=== PATIENT | female | born 1960 | race Caucasian/White ===

== ENCOUNTER → 2021-04-14 | Outpatient (CLI) | payer OTHER, SELFPAY | PROVIDERS: Referring Provider Internal Medicine; Visit Provider Internal Medicine | DX: Z23 Encounter for immunization (principal) | CPT/HCPCS: 90471; 90686 ==

== ENCOUNTER 2021-05-09 11:59 | Emergency (ER) | payer OTHER, SELFPAY ==
[2021-05-09] VITALS (9 sets, daily range): BP systolic 96–117; BP diastolic 55–64; PULSE 54–90; RESP 16–26; TEMP 36.2; O2SAT 93–99
--- NOTE | 2021-05-09 12:29 | DI.RAD.S_ITS ---
PROCEDURE: XR CHEST 2V INDICATIONS: Mid back pain TECHNIQUE: 2 views of the chest were acquired. COMPARISON: [facility], CT, CT THORACIC SPINE WO CON, 05/09/2021, 12:40. FINDINGS: Surgical changes and devices: Right breast clips. Lungs and pleura: Lungs are clear. No pleural effusions or pneumothorax. Mediastinum: Mediastinal contours are normal. Heart size is normal. Bones and chest wall: No suspicious bony abnormalities. Soft tissues appear unremarkable. IMPRESSION: No acute cardiopulmonary abnormality. Dictated by: Anthony Batista M.D. on 05/09/2021 at 13:40 Approved by: Anthony Batista M.D. on 05/09/2021 at 13:42
--- NOTE | 2021-05-09 12:39 | DI.CT.S_ITS ---
PROCEDURE: CT THORACIC SPINE WO CON INDICATIONS: Midline thoracic tenderness TECHNIQUE: Noncontrast 3 mm thick sections acquired through the region of interest in the thoracic spine. Sagittal and coronal reformats were then constructed. For radiation dose reduction, the following was used: automated exposure control. COMPARISON: None. FINDINGS: Image quality: Excellent. Bones: There is normal overall bony alignment. No acute vertebral body compression fractures. Minimal anterior vertebral body height loss of multiple contiguous thoracic vertebral bodies results in increase in the thoracic kyphosis. No suspicious sclerotic or lytic bony lesions. Central spinal canal is of normal overall caliber. Soft tissues: No paravertebral masses or hematomas. Visualized posteromedial lungs appear clear. IMPRESSION: No evidence acute bony abnormality of the thoracic spine. If clinical suspicion and/or symptoms persist, further assessment with repeat plain films, or advanced imaging (e.g., CT, MRI, or bone scan) may be helpful for further assessment. Dictated by: Jimi Murillo M.D. on 05/09/2021 at 13:20 Approved by: Jimi Murillo M.D. on 05/09/2021 at 13:25
--- NOTE | 2021-05-09 12:47 | ED.BACK ---
HPI - Back Pain/Injury <Babatunde Martell PA-C - Last Filed: 05/09/21 15:36> General Chief Complaint: Back Pain/Injury Stated Complaint: Back Pain/Throwing Up/Coloring is Off, Hx Diabetes Time Seen by Provider: 05/09/21 12:17 Source: patient Limitations: no limitations History of Present Illness HPI Narrative: 60-year-old female past medical history diabetes, hypertension presents to the ED with 2 days of all over back pain. Patient says she has been feeling generally unwell for the last 4 weeks, however nausea, vomiting and back pain started since yesterday. Patient endorses a lot of recent stress, on account of taking care of her mother. Patient states that she felt lightheaded this morning, sat down in the break room on the floor, was sent to the ED for further evaluation. 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 Patient denies fever, chills, shortness of breath, cough, abdominal pain, dysuria, diarrhea, constipation. Denies urinary hesitancy, IV drug use, perianal numbness. Patient endorses substernal chest pain that has been ongoing for 4 weeks. Patient is vaccinated for COVID-19. Related Data Allergies Allergy/AdvReac Type Severity Reaction Status Date / Time Sulfa (Sulfonamide Allergy Severe Vomiting Verified 05/09/21 12:26 Antibiotics) naproxen [From Aleve] AdvReac Unknown Verified 05/09/21 12:26 Review of Systems <Babatunde Martell PA-C - Last Filed: 05/09/21 15:36> Constitutional Constitutional: Denies chills, Denies fatigue, Denies fever(s), Denies frequent falls, Denies lethargy and Denies weakness Eyes Eyes: Denies change in vision, Denies eye discharge, Denies irritation and Denies loss of vision ENT Ears, Nose, Mouth, and Throat: Denies change in voice, Denies dizziness, Denies neck pain, Denies sore throat and Denies throat swelling Cardiovascular Cardiovascular: Denies chest pain, Denies irregular heart rhythm, Denies lightheadedness, Denies palpitations, Denies dyspnea, Denies dyspnea on exertion and Denies orthopnea Respiratory Respiratory: Denies cough, Denies dyspnea, Denies dyspnea on exertion and Denies wheezing Gastrointestinal Gastrointestinal: Denies abdominal pain, Denies change in bowel habits, Denies diarrhea, Reports nausea and Reports vomiting Musculoskeletal Musculoskeletal: Reports back pain, Denies neck pain and Denies numbness Integumentary/Breasts Skin/Breast: Denies pruritus, Denies erythema, Denies rash and Denies wounds Neurologic Neurologic: Denies behavioral changes, Denies confusion, Denies dizziness, Denies frequent falls, Denies loss of vision, Denies numbness and Denies weakness Psychiatric Psychiatric: Denies anxiety, Denies behavioral changes, Denies confusion, Denies depression, Denies homicidal ideation and Denies suicidal ideation Endocrine Endocrine: Denies fatigue, Denies flushing and Denies palpitations Hematologic/Lymphatic Hematologic/Lymphatic: Denies easy bruising Allergic/Immunologic Allergic/Immunologic: Denies urticaria, Denies throat swelling and Denies wheezing Patient History <Babatunde Martell PA-C - Last Filed: 05/09/21 15:36> Social History Smoking Status: Never smoker Smoking Status: Never smoker alcohol intake frequency: 0-2 drinks per day Substance Use Type: does not use Exam <Babatunde Martell PA-C - Last Filed: 05/09/21 15:36> Initial Vital Signs Initial Vital Signs: Vital Signs Temperature 97.1 F L 05/09/21 12:14 Pulse Rate 90 05/09/21 12:14 Respiratory Rate 16 05/09/21 12:14 Blood Pressure 96/64 05/09/21 12:14 Pulse Oximetry 99 05/09/21 12:14 Const General: cooperative HENMT Head: normocephalic and atraumatic Ears: external ears normal and TM's normal bilaterally Nose: external nose normal and No nasal discharge Face and sinus: sinuses nontender, face symmetric, no sinus tenderness and No dry mucous membranes Mouth: oral mucosae normal and moist mucous membranes Teeth and gingiva: dentition normal Throat: tonsils normal and uvula midline Eyes General: appearance normal, both eyes and all related structures Eyelids: eyelids normal Conjunctivae: conjunctivae normal Sclera: sclerae normal Pupils: PERRL EOM: EOM intact bilaterally Neck Neck: normal visual inspection, trachea midline, No lymphadenopathy, No midline deformity and No JVD Lymphatic: No lymphedema Chest Chest: normal inspection of the chest Resp Effort & Inspection: normal respiratory effort, able to speak in complete sentences, no respiratory distress and no use of accessory muscles Auscultation: clear to auscultation bilaterally, no rales, no rhonchi and no wheezes Cardio Rate: regular rate Rhythm: regular rhythm Heart Sounds: no click, no gallops, no murmurs and no rubs Pulses: normal peripheral pulses GI Inspection: non-distended Palpation: soft, no hepatosplenomegaly, No guarding, No pulsatile mass and No tender Auscultation: normal bowel sounds Back/Spine/Pelvis Back: No CVA tenderness Cervical Spine: cervical ROM normal and No pain with cervical ROM Thoracic/Lumbar Spine: thoracic and lumbar spine normal to inspection Other: Midline tenderness to the thoracic region. Full range of motion. Strength and sensation intact. Strength and sensation intact. Skin General: no rashes or lesions noted, No jaundice and No petechiae Neuro General: patient alert, patient oriented x3, gait normal and no focal motor deficits Speech: speech normal Extrem General: full ROM, no clubbing, cyanosis or edema, no pedal edema and no calf tenderness Psych Appearance: well kempt Mental Status: mental status grossly normal Attitude: cooperative Thought Content: normal and suicidality Judgment: judgment good <Gen Perez DO - Last Filed: 05/09/21 15:37> Initial Vital Signs Initial Vital Signs: Vital Signs Temperature 97.1 F L 05/09/21 12:14 Pulse Rate 90 05/09/21 12:14 Respiratory Rate 16 05/09/21 12:14 Blood Pressure 96/64 05/09/21 12:14 Pulse Oximetry 99 05/09/21 12:14 Course <Babatunde Martell PA-C - Last Filed: 05/09/21 15:36> Course Course Narrative: Labs within normal limits. Chest x-ray, CT thoracic spine with no acute findings. Patient's back pain and nausea improved medications. Back pain likely due to sprain/strain. Will discharge home with ED return precautions. Orders Ordered: ED Orders 05/09/21 12:29 XR chest 2V Stat 05/09/21 12:39 CT thoracic spine wo con Stat 05/09/21 12:55 Complete Blood Count AUTO DIFF Stat Comprehensive Metabolic Panel Stat Magnesium Stat Troponin I Stat 05/09/21 12:56 Venous Blood Gas Stat 05/09/21 13:20 COVID19 -Nasal swab/Pre-Proc Stat Discontinued Medications Al Hydrox/Mg Hydrox/Simethicone (Mag Hydrox/Alum/Simeth 30 Ml Udc) 30 ml PO NOW ONE Stop: 05/09/21 13:10 Last Admin: 05/09/21 13:12 Dose: 30 ml Documented by: SHABBIR Sodium Chloride (Normal Saline 0.9%) 1,000 mls @ 1,000 mls/hr IV BOLUS ONE Stop: 05/09/21 13:31 Last Infusion: 05/09/21 15:13 Dose: 0 mls/hr Documented by: Admin: 05/09/21 13:12 Dose: 1,000 mls/hr Documented by: SHABBIR Ketorolac Tromethamine (Ketorolac 30 Mg/Ml Vial) 15 mg IV NOW ONE Stop: 05/09/21 12:33 Last Admin: 05/09/21 13:12 Dose: 15 mg Documented by: SHABBIR Ondansetron HCl (Ondansetron 4 Mg/2 Ml Inj) 4 mg IV NOW ONE Stop: 05/09/21 12:33 Last Admin: 05/09/21 13:13 Dose: 4 mg Documented by: SHABBIR Vital Signs Vital signs: Vital Signs - 8 hr 05/09/21 12:14 05/09/21 12:46 05/09/21 12:48 Temperature 97.1 F L Pulse Rate 90 69 70 Respiratory Rate 16 Blood Pressure 96/64 117/61 Pulse Oximetry 99 93 99 05/09/21 13:00 05/09/21 13:30 05/09/21 14:00 Temperature Pulse Rate 69 64 61 Respiratory Rate 26 H 16 19 Blood Pressure Pulse Oximetry 97 99 97 05/09/21 14:30 05/09/21 14:44 05/09/21 15:00 Temperature Pulse Rate 59 L 55 L 54 L Respiratory Rate 22 23 23 Blood Pressure 113/56 L 114/55 L Pulse Oximetry 97 99 97 <Gen Perez DO - Last Filed: 05/09/21 15:37> Orders Ordered: ED Orders 05/09/21 12:29 XR chest 2V Stat 05/09/21 12:39 CT thoracic spine wo con Stat 05/09/21 12:55 Complete Blood Count AUTO DIFF Stat Comprehensive Metabolic Panel Stat Magnesium Stat Troponin I Stat 05/09/21 12:56 Venous Blood Gas Stat 05/09/21 13:20 COVID19 -Nasal swab/Pre-Proc Stat Discontinued Medications Al Hydrox/Mg Hydrox/Simethicone (Mag Hydrox/Alum/Simeth 30 Ml Udc) 30 ml PO NOW ONE Stop: 05/09/21 13:10 Last Admin: 05/09/21 13:12 Dose: 30 ml Documented by: JUONER Sodium Chloride (Normal Saline 0.9%) 1,000 mls @ 1,000 mls/hr IV BOLUS ONE Stop: 05/09/21 13:31 Last Infusion: 05/09/21 15:13 Dose: 0 mls/hr Documented by: Admin: 05/09/21 13:12 Dose: 1,000 mls/hr Documented by: SHABBIR Ketorolac Tromethamine (Ketorolac 30 Mg/Ml Vial) 15 mg IV NOW ONE Stop: 05/09/21 12:33 Last Admin: 05/09/21 13:12 Dose: 15 mg Documented by: SHABBIR Ondansetron HCl (Ondansetron 4 Mg/2 Ml Inj) 4 mg IV NOW ONE Stop: 05/09/21 12:33 Last Admin: 05/09/21 13:13 Dose: 4 mg Documented by: SHABBIR Vital Signs Vital signs: Vital Signs - 8 hr 05/09/21 12:14 05/09/21 12:46 05/09/21 12:48 Temperature 97.1 F L Pulse Rate 90 69 70 Respiratory Rate 16 Blood Pressure 96/64 117/61 Pulse Oximetry 99 93 99 05/09/21 13:00 05/09/21 13:30 05/09/21 14:00 Temperature Pulse Rate 69 64 61 Respiratory Rate 26 H 16 19 Blood Pressure Pulse Oximetry 97 99 97 05/09/21 14:30 05/09/21 14:44 05/09/21 15:00 Temperature Pulse Rate 59 L 55 L 54 L Respiratory Rate 22 23 23 Blood Pressure 113/56 L 114/55 L Pulse Oximetry 97 99 97 MDM - Back Pain/Injury <Babatunde Martell PA-C - Last Filed: 05/09/21 15:36> Lab Data Lab results narrative: Labs within normal limits Result diagrams: 05/09/21 12:55 05/09/21 12:55 Labs: Lab Results 05/09/21 05/09/21 05/09/21 Range/Units 12:55 12:55 12:55 WBC 7.6 (4.5-11.0) X10^3/uL RBC 4.19 (4.0-5.2) X10^6/uL Hgb 11.4 L (12.0-16.0) g/dL Hct 34.0 L (36-46) % MCV 81.0 (80-100) fL MCH 27.2 (26-34) PG MCHC 33.6 (30-36) % RDW 15.5 H (11.6-14.8) % Plt Count 411 H (150-400) X10^3/uL Neut % (Auto) 80.7 H (50-75) % Lymph % (Auto) 12.5 L (25-40) % [place] % (Auto) 5.6 (3-14) % Eos % (Auto) 0.7 L (2-4) % Baso % (Auto) 0.5 (0-2) % Neut # (Auto) 6100 (4689-7195) /uL Lymph # (Auto) 900 L (9195-5598) /uL [place] # (Auto) 400 (0-900) /uL Eos # (Auto) 100 (0-450) /uL Baso # (Auto) 0 (0-100) /uL VBG pH (7.33-7.43) VBG pCO2 (45-50) mmHg VBG pO2 (35-45) mmHg VBG HCO3 (23-28) mmol/L VBG Total CO2 (24-29) mmol/L VBG O2 Saturation (70-75) % VBG Base Excess (0-4) mmol/L Sodium 138 (137-145) mmol/L Potassium 4.9 (3.4-5.1) mmol/L Chloride 99 (98-107) mmol/L Carbon Dioxide 29 (22-32) mmol/L BUN 24 H (7-17) mg/dL Creatinine 1.99 H (0.52-1.04) mg/dL Estimated GFR 25.4 L (>60) mL/min BUN/Creatinine Ratio 12.1 (6-22) Glucose 147 H (80-110) mg/dL Calcium 10.1 (8.4-10.2) mg/dL Magnesium 1.4 L (1.6-2.3) mg/dL Total Bilirubin 0.8 (0.2-1.3) mg/dL AST 34 (14-36) IU/L ALT 31 (<35) IU/L Alkaline Phosphatase 69 (38-126) U/L Troponin I < 0.012 (0.01-0.034) ng/mL Total Protein 7.6 (6.3-8.2) g/dL Albumin 4.6 (3.5-5.0) g/dL Globulin 3.0 (1.7-4.1) g/dL Albumin/Globulin Ratio 1.5 (1.0-2.8) SARS-CoV-2 (PCR) (Negative) 05/09/21 05/09/21 Range/Units 12:56 13:20 WBC (4.5-11.0) X10^3/uL RBC (4.0-5.2) X10^6/uL Hgb (12.0-16.0) g/dL Hct (36-46) % MCV (80-100) fL MCH (26-34) PG MCHC (30-36) % RDW (11.6-14.8) % Plt Count (150-400) X10^3/uL Neut % (Auto) (50-75) % Lymph % (Auto) (25-40) % [place] % (Auto) (3-14) % Eos % (Auto) (2-4) % Baso % (Auto) (0-2) % Neut # (Auto) (5394-5808) /uL Lymph # (Auto) (7437-5755) /uL [place] # (Auto) (0-900) /uL Eos # (Auto) (0-450) /uL Baso # (Auto) (0-100) /uL VBG pH 7.39 (7.33-7.43) VBG pCO2 50.3 H (45-50) mmHg VBG pO2 18 L (35-45) mmHg VBG HCO3 30 H (23-28) mmol/L VBG Total CO2 32 H (24-29) mmol/L VBG O2 Saturation 26 L (70-75) % VBG Base Excess 5.0 H (0-4) mmol/L Sodium (137-145) mmol/L Potassium (3.4-5.1) mmol/L Chloride (98-107) mmol/L Carbon Dioxide (22-32) mmol/L BUN (7-17) mg/dL Creatinine (0.52-1.04) mg/dL Estimated GFR (>60) mL/min BUN/Creatinine Ratio (6-22) Glucose (80-110) mg/dL Calcium (8.4-10.2) mg/dL Magnesium (1.6-2.3) mg/dL Total Bilirubin (0.2-1.3) mg/dL AST (14-36) IU/L ALT (<35) IU/L Alkaline Phosphatase (38-126) U/L Troponin I (0.01-0.034) ng/mL Total Protein (6.3-8.2) g/dL Albumin (3.5-5.0) g/dL Globulin (1.7-4.1) g/dL Albumin/Globulin Ratio (1.0-2.8) SARS-CoV-2 (PCR) Negative (Negative) Imaging Data Chest x-ray: Radiologist's Impression: PROCEDURE:? XR CHEST 2V ? INDICATIONS:? Mid back pain ? TECHNIQUE:? 2 views of the chest were acquired.? ? COMPARISON:? [facility], CT, CT THORACIC SPINE WO CON, 05/09/2021, 12:40. ? FINDINGS:? ? Surgical changes and devices:? Right breast clips. ? Lungs and pleura:? Lungs are clear.? No pleural effusions or pneumothorax.? ? Mediastinum:? Mediastinal contours are normal.? Heart size is normal.? ? Bones and chest wall:? No suspicious bony abnormalities.? Soft tissues appear unremarkable.? ? IMPRESSION:? No acute cardiopulmonary abnormality. ? ? ? Dictated by: Anthony Batista M.D. on 05/09/2021 at 13:40 ? ? Approved by: Anthony Batista M.D. on 05/09/2021 at 13:42 ? CT thoracic spine: Radiologist's Impression: PROCEDURE:? CT THORACIC SPINE WO CON ? INDICATIONS:? Midline thoracic tenderness ? TECHNIQUE:? Noncontrast 3 mm thick sections acquired through the region of interest in the thoracic spine.? Sagittal and coronal reformats were then constructed.? For radiation dose reduction, the following was used:? automated exposure control.? ? COMPARISON:? None. ? FINDINGS:? Image quality:? Excellent.? ? Bones:? There is normal overall bony alignment.? No acute vertebral body compression fractures.? Minimal anterior vertebral body height loss of multiple contiguous thoracic vertebral bodies results in increase in the thoracic kyphosis.? No suspicious sclerotic or lytic bony lesions.? Central spinal canal is of normal overall caliber.? ? Soft tissues:? No paravertebral masses or hematomas.? Visualized posteromedial lungs appear clear.? ? IMPRESSION:? No evidence acute bony abnormality of the thoracic spine. ? If clinical suspicion and/or symptoms persist, further assessment with repeat plain films, or advanced imaging (e.g., CT, MRI, or bone scan) may be helpful for further assessment. ? ? ? Dictated by: Jimi Murillo M.D. on 05/09/2021 at 13:20 ? ? Approved by: Jimi Murillo M.D. on 05/09/2021 at 13:25 ? ECG Data Interpretation: No acute ST-T changes, normal sinus rhythm MDM Narrative Medical decision making narrative: 60-year-old female past medical history diabetes, hypertension presents to the ED with 2 days of all over back pain. Concern for fractures/dislocations versus musculoskeletal sprain/strain versus ACS versus DKA Unlikely aortic dissection, given symptoms have been ongoing for 4 weeks. No red flag symptoms for cauda equina including urinary hesitancy, perianal numbness. Patient is not a IVDU, no systemic symptoms,unlikely epidural abscess. Order chest x-ray, EKG, troponin, labs, VBG, UA. Will give Zofran, IV fluids, Toradol for symptoms. Will reassess. <Gen Perez, - Last Filed: 05/09/21 15:37> Lab Data Labs: Lab Results 05/09/21 05/09/21 05/09/21 Range/Units 12:55 12:55 12:55 WBC 7.6 (4.5-11.0) X10^3/uL RBC 4.19 (4.0-5.2) X10^6/uL Hgb 11.4 L (12.0-16.0) g/dL Hct 34.0 L (36-46) % MCV 81.0 (80-100) fL MCH 27.2 (26-34) PG MCHC 33.6 (30-36) % RDW 15.5 H (11.6-14.8) % Plt Count 411 H (150-400) X10^3/uL Neut % (Auto) 80.7 H (50-75) % Lymph % (Auto) 12.5 L (25-40) % [place] % (Auto) 5.6 (3-14) % Eos % (Auto) 0.7 L (2-4) % Baso % (Auto) 0.5 (0-2) % Neut # (Auto) 6100 (8158-9817) /uL Lymph # (Auto) 900 L (9103-6557) /uL [place] # (Auto) 400 (0-900) /uL Eos # (Auto) 100 (0-450) /uL Baso # (Auto) 0 (0-100) /uL VBG pH (7.33-7.43) VBG pCO2 (45-50) mmHg VBG pO2 (35-45) mmHg VBG HCO3 (23-28) mmol/L VBG Total CO2 (24-29) mmol/L VBG O2 Saturation (70-75) % VBG Base Excess (0-4) mmol/L Sodium 138 (137-145) mmol/L Potassium 4.9 (3.4-5.1) mmol/L Chloride 99 (98-107) mmol/L Carbon Dioxide 29 (22-32) mmol/L BUN 24 H (7-17) mg/dL Creatinine 1.99 H (0.52-1.04) mg/dL Estimated GFR 25.4 L (>60) mL/min BUN/Creatinine Ratio 12.1 (6-22) Glucose 147 H (80-110) mg/dL Calcium 10.1 (8.4-10.2) mg/dL Magnesium 1.4 L (1.6-2.3) mg/dL Total Bilirubin 0.8 (0.2-1.3) mg/dL AST 34 (14-36) IU/L ALT 31 (<35) IU/L Alkaline Phosphatase 69 (38-126) U/L Troponin I < 0.012 (0.01-0.034) ng/mL Total Protein 7.6 (6.3-8.2) g/dL Albumin 4.6 (3.5-5.0) g/dL Globulin 3.0 (1.7-4.1) g/dL Albumin/Globulin Ratio 1.5 (1.0-2.8) SARS-CoV-2 (PCR) (Negative) 05/09/21 05/09/21 Range/Units 12:56 13:20 WBC (4.5-11.0) X10^3/uL RBC (4.0-5.2) X10^6/uL Hgb (12.0-16.0) g/dL Hct (36-46) % MCV (80-100) fL MCH (26-34) PG MCHC (30-36) % RDW (11.6-14.8) % Plt Count (150-400) X10^3/uL Neut % (Auto) (50-75) % Lymph % (Auto) (25-40) % [place] % (Auto) (3-14) % Eos % (Auto) (2-4) % Baso % (Auto) (0-2) % Neut # (Auto) (9462-1532) /uL Lymph # (Auto) (8634-9274) /uL [place] # (Auto) (0-900) /uL Eos # (Auto) (0-450) /uL Baso # (Auto) (0-100) /uL VBG pH 7.39 (7.33-7.43) VBG pCO2 50.3 H (45-50) mmHg VBG pO2 18 L (35-45) mmHg VBG HCO3 30 H (23-28) mmol/L VBG Total CO2 32 H (24-29) mmol/L VBG O2 Saturation 26 L (70-75) % VBG Base Excess 5.0 H (0-4) mmol/L Sodium (137-145) mmol/L Potassium (3.4-5.1) mmol/L Chloride (98-107) mmol/L Carbon Dioxide (22-32) mmol/L BUN (7-17) mg/dL Creatinine (0.52-1.04) mg/dL Estimated GFR (>60) mL/min BUN/Creatinine Ratio (6-22) Glucose (80-110) mg/dL Calcium (8.4-10.2) mg/dL Magnesium (1.6-2.3) mg/dL Total Bilirubin (0.2-1.3) mg/dL AST (14-36) IU/L ALT (<35) IU/L Alkaline Phosphatase (38-126) U/L Troponin I (0.01-0.034) ng/mL Total Protein (6.3-8.2) g/dL Albumin (3.5-5.0) g/dL Globulin (1.7-4.1) g/dL Albumin/Globulin Ratio (1.0-2.8) SARS-CoV-2 (PCR) Negative (Negative) Discharge Plan Departure Patient Disposition: Home Clinical Impression: Mid back pain Instructions: DI for Back Strain or Sprain Activity Restrictions/Additional Instructions: You were evaluated in the ED today for back pain. Your labs, chest x-ray, CT thoracic spine were normal. Your symptoms are likely due to a back sprain/strain. You can take Tylenol and ibuprofen for your symptoms. Follow-up with your PCP. Return to the ED if your symptoms worsen, you feel numbness, tingling, weakness, you experience urinary or stool incontinence, headache, neck stiffness, neck pain. Stand Alone Forms: Work Release Note <Gen Perez, DO - Last Filed: 05/09/21 15:37> [facility] Dr Perez Co-Sign Statement: I was available for consultation during this patient's emergency department visit. This chart is signed by myself for administrative purposes only. I did not have direct contact with this patient during this visit. They were seen independently by the APC.
[2021-05-09 13:04] LABS: PCO2 VBG 50.3 mmHg (45-50); PO2 VBG 18 mmHg (35-45); pH VBG 7.39 (7.33-7.43)
[2021-05-09 13:04] LABS: Add Manual Diff / Slide Review NO; Basophils Absolute Auto 0 /uL (0-100); Basophils Percent Auto 0.5 % (0-2); Eosinophils Absolute Auto 100 /uL (0-450); Eosinophils Percent Auto 0.7 % (2-4); Hemoglobin 11.4 g/dL (12.0-16.0); Lymphocytes Absolute Auto 900 /uL (1100-4500); Lymphocytes Percent Auto 12.5 % (25-40); Mean Corpuscular HGB Conc 33.6 % (30-36); Mean Corpuscular Hemoglobin 27.2 PG (26-34); Monocytes Absolute Auto 400 /uL (0-900); Monocytes Percent Auto 5.6 % (3-14); Neutrophils Absolute Auto 6100 /uL (1500-7000); Neutrophils Percent Auto 80.7 % (50-75); Platelet Count 411 X10^3/uL (150-400); Red Blood Cell Count 4.19 X10^6/uL (4.0-5.2); Red Cell Distribution Width 15.5 % (11.6-14.8); White Blood Cell Count 7.6 X10^3/uL (4.5-11.0)
[2021-05-09 13:05] LABS: HCO3 VBG 30 mmol/L (23-28); Oxygen Saturation VBG 26 % (70-75); Total CO2 VBG 32 mmol/L (24-29)
[2021-05-09] MEDS: KETOROLAC 30 MG/ML VIAL 15 MG IV (13:12)
[2021-05-09] MEDS: SODIUM CHLORIDE 0.9% 1,000 ML 1000 ML IV (13:12)
[2021-05-09] MEDS: MAG HYDROX/ALUM/SIMETH 30 ML UDC PO (13:12)
[2021-05-09] MEDS: ONDANSETRON 4 MG/2 ML INJ IV (13:13)
[2021-05-09 13:17] LABS: Magnesium 1.4 mg/dL (1.6-2.3)
[2021-05-09 13:18] LABS: Alanine Aminotransferase 31 IU/L (<35); Albumin 4.6 g/dL (3.5-5.0); Albumin Globulin Ratio 1.5 (1.0-2.8); Alkaline Phosphatase 69 U/L (38-126); Aspartate Aminotransferase 34 IU/L (14-36); BUN Creatinine Ratio 12.1 (6-22); Bilirubin Total 0.8 mg/dL (0.2-1.3); Blood Urea Nitrogen 24 mg/dL (7-17); Calcium 10.1 mg/dL (8.4-10.2); Carbon Dioxide 29 mmol/L (22-32); Chloride 99 mmol/L (98-107); Estimated Glomerular Filt Rate 25.4 mL/min (>60); Glucose 147 mg/dL (80-110); HEMOLYSIS < 15 (0-50); Potassium 4.9 mmol/L (3.4-5.1); Sodium 138 mmol/L (137-145); Total Protein 7.6 g/dL (6.3-8.2)
--- NOTE | 2021-05-09 13:23 | PC.NURSE ---
pt c/o of heartburn reported to [facility]. orders rec'd.
[2021-05-09 13:29] LABS: Troponin I < 0.012 ng/mL (0.01-0.034)
[2021-05-09 13:44] LABS: COVID19 -Nasal RAPID Negative (Negative)
== END 2021-05-09 15:18 | disposition home or self-care (01) ==
PROVIDERS: Emergency Provider Student in an Organized Health Care Education/Training Program
DX: M54.6 Pain in thoracic spine (principal); R42 Dizziness and giddiness; R11.2 Nausea with vomiting, unspecified; Z20.822 Contact with and (suspected) exposure to COVID-19
CPT/HCPCS: 36415; 71046; 72128; 80053; 82805; 83735; 84484; 85025; 87635; 93005; 96361; 96374; 96375; 99284; C9803; J1885; J2405

== ENCOUNTER → 2021-05-13 12:35 | Outpatient (CLI) | payer OTHER, SELFPAY ==
[2021-05-13] MEDS: COVID-19 VACC #3, MRNA(MOD) 50 MCG/0.25 ML VIAL IM (12:42)
== END ==
PROVIDERS: Visit Provider Internal Medicine
DX: Z23 Encounter for immunization (principal)
CPT/HCPCS: 0013A; 91301